=== PATIENT | male | born 1975 | race Caucasian/White ===

== ENCOUNTER 2019-12-28 16:22 | Emergency (ER) | payer BC, SELFPAY ==
[2019-12-28 16:30] VITALS: BP 166/98; PULSE 74; RESP 16; TEMP 36.7; O2SAT 99
--- NOTE | 2019-12-28 17:06 | ED.EYEPROB ---
HPI - Eye Problem General Chief complaint: Eye Problems Stated complaint: left eye red/swollen Time Seen by Provider: 12/28/19 16:51 Source: patient and RN notes reviewed Mode of arrival: ambulatory Limitations: no limitations History of Present Illness HPI Narrative: Patient presents today with a foreign body to his left eye x30 minutes. He was cutting Plexiglas at home, while wearing his normal glasses and states a piece of it flew into his eye. When I came into the room for exam, patient states, I don't feel anything anymore. I can open my eye. States that he thinks the foreign body has left his eye between triage and provider exam. He did flush his eye with water prior to arrival without relief of symptoms. Related Data Home Medications Medication Instructions Recorded Confirmed No Home Medications 12/28/19 12/28/19 Allergies Allergy/AdvReac Type Severity Reaction Status Date / Time No Known Allergies Allergy Verified 12/28/19 16:39 Review of Systems Review of Systems: Narrative: CONSTITUTIONAL: Denies body aches, fever, chills, or sweats. EYES: Denies visual changes, redness, or discharge. Left eye foreign body. ENT: Denies rhinorrhea, congestion, sore throat, or otalgia. CARDIOVASCULAR: Denies chest pain, palpitations, or edema. RESPIRATORY: Denies cough or dyspnea. GASTROINTESTINAL: Denies abdominal pain, nausea, vomiting, or diarrhea. GENITOURINARY: Denies dysuria or hematuria. SKIN: Denies rash, itching, or wounds. MUSCULOSKELETAL: Denies back pain, joint pain, or myalgia. NEUROLOGIC: Denies headache, numbness, tingling, or weakness. PSYCH: Denies depression or anxiety. PMFSH Comments At time of signature, I have reviewed and agree with nursing past medical, surgical, social and family history unless otherwise noted. Please see nursing chart for further information. There is no relevant family history pertinent to the presenting complaint Exam Narrative: Exam Narrative: GENERAL: Well-appearing, well-nourished, and in no acute distress. HEAD: Normocephalic, atraumatic. EYES: EOMI. PERRL. No redness or drainage bilaterally. Slight edema to the outer left conjunctiva. No fluorescein uptake in the left eye. See procedure note. Lids and lashes normal bilaterally ENT: Mucous membranes pink and moist. NECK: Normal AROM. CHEST: No respiratory distress. EXTREMITIES: Normal range of motion. No edema. SKIN: Warm, dry, no rash. Capillary refill normal. Normal skin turgor. NEURO: No focal deficits. Alert and oriented x3. Gait steady. PSYCH: Normal affect. No signs of depression or anxiety. Course Vital Signs Vital signs: Vital Signs Temperature 98.1 F 12/28/19 16:30 Pulse Rate 74 12/28/19 16:30 Respiratory Rate 16 12/28/19 16:30 Blood Pressure 166/98 H 12/28/19 16:30 Pulse Oximetry 99 12/28/19 16:30 Temperature 98.1 F 12/28/19 16:30 Pulse Rate 74 12/28/19 16:30 Respiratory Rate 16 12/28/19 16:30 Blood Pressure 166/98 H 12/28/19 16:30 Pulse Oximetry 99 12/28/19 16:30 Reviewed. Pt has been instructed to follow up with his PCP regarding his elevated blood pressure today. Procedures Other Procedure Procedure 1: Other Procedure: Left eye was anesthetized with 1 drop of tetracaine and anesthesia was achieved. The eye was flushed with eye wash. Lid was inverted and examined. Moistened Qtip was used to sweep underneath the upper eyelid with 0 foreign bodies resulting. Cornea was dyed with fluorescein and 0 abrasions or ulcerations were noted. Pt tolerated procedure well. MDM - Eye Problem Differential Diagnosis Differential diagnosis: Likely corneal abrasion, conjunctivitis and corneal ulcer Critical Care Time Critical Care Time Critical Care Time: No Discharge Plan Discharge Clinical Impression: Foreign body of left eye Qualifiers: Encounter type: initial encounter Qualified Code(s): T15.92XA - Foreign body on external eye, part unspecified,
== END 2019-12-28 17:10 | disposition home or self-care (01) ==
PROVIDERS: Emergency Provider Nurse Practitioner
DX: T15.92XA Foreign body on external eye, part unspecified, left eye, initial encounter (principal)
CPT/HCPCS: 65205; 99203; A9270; G0463

== ENCOUNTER 2021-07-24 09:05 | Emergency (ER) | payer BC, SELFPAY ==
[2021-07-24 09:17] VITALS: BP 147/87; PULSE 78; RESP 16; TEMP 36.8; O2SAT 100
--- NOTE | 2021-07-24 09:38 | ED.GENADULT ---
HPI - General Adult General Chief complaint: Skin/Abscess/Foreign Body Stated complaint: lt foot gout Time Seen by Provider: 07/24/21 09:31 Source: patient and RN notes reviewed Mode of arrival: ambulatory Limitations: no limitations History of Present Illness HPI narrative: Patient presents today complaining of a gout flare in his left foot x2 days. Patient states his pain feels similar to an episode he had approximately 1 year ago. Pain is localized to the base of the left second toe. Denies numbness or tingling. Currently rates his pain 8/10, which increases with weightbearing. He has been taking ibuprofen without relief. MD complaint: Left foot pain Related Data Allergies Allergy/AdvReac Type Severity Reaction Status Date / Time No Known Allergies Allergy Verified 12/28/19 16:39 Review of Systems Review of Systems: CONSTITUTIONAL: Denies body aches, fever, chills, or sweats. EYES: Denies visual changes, redness, or discharge. ENT: Denies rhinorrhea, congestion, sore throat, or otalgia. CARDIOVASCULAR: Denies chest pain, palpitations, or edema. RESPIRATORY: Denies cough or dyspnea. GASTROINTESTINAL: Denies abdominal pain, nausea, vomiting, or diarrhea. GENITOURINARY: Denies dysuria or hematuria. SKIN: Denies rash, itching, or wounds. MUSCULOSKELETAL: Denies back pain, or myalgia.+Left foot pain NEUROLOGIC: Denies headache, numbness, tingling, or weakness. PSYCH: Denies depression or anxiety. PMFSH Comments At time of signature, I have reviewed and agree with nursing past medical, surgical, social and family history unless otherwise noted. Please see nursing chart for further information. There is no relevant family history pertinent to the presenting complaint Exam Narrative: GENERAL: Well-appearing, well-nourished, and in no acute distress. HEAD: Normocephalic, atraumatic. EYES: EOMI. No redness or drainage. Conjunctivae normal. ENT: Mucous membranes pink and moist. NECK: Normal AROM. CHEST: No respiratory distress. EXTREMITIES: Left foot:Tenderness to the base of the second toe With faint erythema noted.No edema noted. Distal sensation intact. Capillary refill normal. Pedal pulse normal. Full range of motion of toes with very slight increased pain to the affected area. SKIN: Warm, dry, no rash. Capillary refill normal. Normal skin turgor. NEURO: No focal deficits. Alert and oriented x3. Gait steady. PSYCH: Normal affect. No signs of depression or anxiety. Course Vital Signs Vital signs: Vital Signs Temperature 98.2 F 07/24/21 09:17 Pulse Rate 78 07/24/21 09:17 Respiratory Rate 16 07/24/21 09:17 Blood Pressure 147/87 H 07/24/21 09:17 Pulse Oximetry 100 07/24/21 09:17 Temperature 98.2 F 07/24/21 09:17 Pulse Rate 78 07/24/21 09:17 Respiratory Rate 16 07/24/21 09:17 Blood Pressure 147/87 H 07/24/21 09:17 Pulse Oximetry 100 07/24/21 09:17 Reviewed. Pt has been instructed to follow up with his PCP regarding his elevated blood pressure today. Medical Decision Making Differential Diagnosis Differential Diagnosis: Gout, arthritis, Anaya's neuroma, tarsal tunnel Vital Signs Vital Signs: Vital Signs Temperature 98.2 F 07/24/21 09:17 Pulse Rate 78 07/24/21 09:17 Respiratory Rate 16 07/24/21 09:17 Blood Pressure 147/87 H 07/24/21 09:17 Pulse Oximetry 100 07/24/21 09:17 Temperature 98.2 F 07/24/21 09:17 Pulse Rate 78 07/24/21 09:17 Respiratory Rate 16 07/24/21 09:17 Blood Pressure 147/87 H 07/24/21 09:17 Pulse Oximetry 100 07/24/21 09:17 Critical Care Time Critical Care Time Critical Care Time: No Discharge Plan Discharge Clinical Impression: Gout Qualifiers: Gout site: foot Gout etiology: unspecified cause Chronicity: acute Laterality: left Qualified Code(s): M10.9 - Gout, unspecified Patient Disposition: Home, Self-Care Condition: Stable Instructions: Low Purine Diet (ED), Gout (ED) Additional Instruct
== END 2021-07-24 09:48 | disposition home or self-care (01) ==
PROVIDERS: Emergency Provider Nurse Practitioner; PCP Internal Medicine
DX: M10.9 Gout, unspecified (principal)
CPT/HCPCS: 99213; G0463

== ENCOUNTER 2021-08-27 08:08 | Emergency (ER) | payer BC, SELFPAY ==
[2021-08-27 08:15] VITALS: BP 152/91; PULSE 74; RESP 18; TEMP 36.7; O2SAT 100
--- NOTE | 2021-08-27 08:17 | ED.LOWEXIN ---
HPI - Extremity Injury (Lower) General Chief Complaint: Extremity Problem,Nontraumatic Stated Complaint: Left Foot Pain Time Seen by Provider: 08/27/21 08:22 Source: patient and RN notes reviewed Mode of arrival: ambulatory Limitations: no limitations History of Present Illness HPI Narrative: 46-year-old male presents with concern for gout flareup to the second digit of the left foot. He reports symptoms started Sunday, he has been icing it. He reports some improvement with icing it, denies symptom resolution. He denies injury or trauma to the digit. MD complaint: other (toe pain) Related Data Home Medications Medication Instructions Recorded Confirmed No Home Medications 08/27/21 08/27/21 Allergies Allergy/AdvReac Type Severity Reaction Status Date / Time No Known Allergies Allergy Verified 08/27/21 08:22 Review of Systems Review of Systems: CONSTITUTIONAL: Denies malaise, chills, sweats, or fever. SKIN: Denies rash or itching, open skin, laceration, abrasion, redness, warmth, swelling. MUSCULOSKELETAL: Reports pain, swelling in the second digit of the left foot NEUROLOGIC: Denies numbness, weakness All systems reviewed & are unremarkable except as noted in HPI and below PMFSH Comments At time of signature, agree with nursing past medical, surgical, social and family history. There is no relevant family history pertinent to the presenting complaint Exam Narrative: GENERAL: Well-appearing, well-nourished, and in no acute distress. HEAD: Normocephalic EYES: PERRLA, sclera clear ENT: Nares clear. NECK: Supple. CHEST: No respiratory distress. Speaks in full sentences. HEART: Regular rate and rhythm. EXTREMITIES: Left foot and digits have normal range of motion, normal strength and sensation. Mild edema, warmth, erythema to the second of the left foot, no acute tenderness SKIN: Warm, dry, no visible rash. No open skin. NEURO: Alert and oriented x3. PSYCH: Normal mood and affect Course Course Emergency Course: Patient is aware of diagnosis, understands and agrees to treatment plan. Anticipatory guidance given. Patient agrees to follow-up as directed and is aware of reasons to seek care at the emergency department. Portions of this record may have been created with voice recognition software Level of Care: Express Care Visit Vital Signs Vital signs: Reviewed. MDM - Extremity Injury (Lower) MDM Narrative Medical decision making narrative: Exam findings show no acute concerns or changes; patient is non-toxic appearing and is in no distress. Patient is appropriate for outpatient treatment and follow-up. Differential Diagnosis Differential diagnosis: Likely fracture of toe and other (Cellulitis, laceration, abrasion, gout, abscess) Critical Care Time Critical Care Time Critical Care Time: No Discharge Plan Discharge Clinical Impression: Gout Qualifiers: Gout site: toe Gout etiology: unspecified cause Chronicity: acute Laterality: left Qualified Code(s): M10.9 - Gout, unspecified Patient Disposition: Home, Self-Care Condition: Stable Instructions: Low Purine Diet (ED) Additional Instructions: 1) Please follow-up with your primary care doctor in the next 1-2 days if your symptoms worsen or do not improve. 2) If you have any urgent concerns please go to the ER. 3) Please take medications as prescribed. 4) Please read and follow information included in discharge instructions. Prescriptions: New colchicine 0.6 mg tablet 1.2 mg PO ONCE Qty: 3 RF: 0 prednisone 20 mg tablet 40 mg PO DAILY 5 Days Qty: 10 RF: 0 No Action No Home Medications RF: 0 Follow-up/Referrals: Carla,MD Stanley [Primary Care Provider] - Time of Disposition: 08:30
== END 2021-08-27 08:36 | disposition home or self-care (01) ==
PROVIDERS: Emergency Provider Nurse Practitioner; PCP Internal Medicine
DX: M10.9 Gout, unspecified (principal)
CPT/HCPCS: 99213; G0463